=== PATIENT | female | born 1980 | race Caucasian/White ===

== ENCOUNTER 2017-01-02 00:59 | Outpatient (CLI) | payer BC, MEDICAID ==
[~2017-01-02 00:59] MED LIST: FERR27TA; PREN1TAB49; PRENAT PO
--- NOTE | 2017-01-02 02:19 | QN ---
Documentation Comment 38+wks For R/o labor +FM No VB No LOF occasional CTXs NST reassuring [place] No CTXs Pelvic Cx closed --->discharge If BPP 8 --->Instructions and precautions discussed with patient CHHAYA GABRIEL M.D. January 02, 2017 02:19
--- NOTE | 2017-01-02 04:15 | RADRPT ---
PROCEDURE: US OB biophysical profile. CLINICAL INDICATION: decreased movements TECHNIQUE: Multiple sonographic images of the pelvis were obtained. The images were reviewed on a PACS workstation. COMPARISON: No pertinent prior examinations were submitted for comparison. FINDINGS: There is a single viable intrauterine gestation. Cardiac activity is present with 130 beats per min [place]. There is a vertex presentation. The placenta is posterior and grade 2 appearance. There is a normal amount of amniotic fluid with an DIANA = 11 cm. Biophysical profile: movement 2/2 tone 2/2. breathing 2/2 DIANA 2/2 Total 03/23 IMPRESSION: Normal biophysical profile. RPTAT: HIKT . .Mc Love MD, Date Time Electronically viewed and signed by .Mc Love MD, on 01/02/2017 04:15 .T/
--- NOTE | 2017-01-02 05:42 | TRIAGE ---
OB Triage Datetime Report Generated by CPN: 01/02/2017 05:42 Datetime: 01/02/2017 03:49 Stage of : OB Triage Datetime: 01/02/2017 03:40 Stage of : OB Triage Datetime: 01/02/2017 03:20 Stage of : OB Triage Datetime: 01/02/2017 02:43 Stage of : OB Triage Datetime: 01/02/2017 02:10 Stage of : OB Triage Datetime: 01/02/2017 02:03 Stage of : OB Triage Datetime: 01/02/2017 02:00 Stage of : OB Triage Labor Evaluation Frequency: x3 Monitor Mode: External Duration (sec)2399: 100-120 Quality: Mild Resting Tone [place]: Relaxed Heart Rate FHR Baseline Rate: 130 Monitor Mode: External US Variability: Moderate 6-25 bpm Accelerations: 15X15 Decelerations: None Category: Category I Datetime: 01/02/2017 01:59 Stage of : OB Triage Datetime: 01/02/2017 01:51 Vaginal Exam Dilatation (cms): 0.0 Effacement (%): 0 Station: -3 Exam By: KIRILL Vaginal Bleeding: None Cervix, Consistency: Firm Cervix, Position: Posterior Datetime: 01/02/2017 01:39 Time of Arrival: 01/02/2017 00:55 EGA: 38.1 Arrived By: Wheelchair Arrived From: Home Chief Complaint: Contractions, vaginal pressure Movement: Present Contractions: Occasional Rupture of Membranes: Denies Vaginal Bleeding: None Vaginal Discharge: Denies Recent Sexual Intercouse: Denies Abdominal Trauma: Not Applicable Patient Complaints: Contractions; Other Time Provider Notified: 01/02/2017 01:59 Provider Notified: PARVEEN Initial Plan: VS, EFM, SVE Datetime: 01/02/2017 01:27 Assessment Type: Triage Maternal Assessment Level of Consciousness: Fully Conscious DTR's/Clonus: DTRs 2+; No Clonus Headache: Denies Blurred Vision: No Respiratory Effort: Unlabored Breath Sounds, Left: Clear and Equal Breath Sounds, Right: Clear and Equal Nausea/Vomiting: Denies RUQ Epigastric Pain: Denies Lower Extremities Edema: None Degree: None Upper Extremities Edema: None Degree: None Facial Edema: None Fall Risk Assessment History of Falling: (0) No Secondary Diagnosis: (15) Yes (Annotations: CSX1) Ambulatory Aid: (0) Bedrest/Nurse Assist IV Therapy: (0) No Gait: (10) Weak Mental Status: (0) Oriented to Own Ability Fall Score: 25 Fall Risk Score Definition: Low Risk: Please see standard fall prevention interventions Datetime: 01/02/2017 01:22 Membrane Status: Intact
== END 2017-01-02 04:25 | disposition home or self-care (01) ==
LOC: OBT 00:59 → L-D 01:00 → OBT 04:25
PROVIDERS: ATTEND Specialist
DX: O26.893 Other specified pregnancy related conditions, third trimester (principal); O09.523 Supervision of elderly multigravida, third trimester; Z3A.38 38 weeks gestation of pregnancy
CPT/HCPCS: 76818; G0463

== ENCOUNTER 2017-01-13 05:46 | Inpatient (IN) | payer BC ==
[~2017-01-13] VITALS: Ht 144.8 cm; Wt 72.8 kg
[2017-01-13 05:57] VITALS: Ht 144.8 cm; Wt 72.8 kg
[2017-01-13] MEDS ORDERED: LACTATED RINGER'S 1,000 ML IV SCH (05:57)
[2017-01-13] MEDS ORDERED: CARBOPROST 250 MCG INJ IM PRN ×2 (06:00→09:00)
[2017-01-13] MEDS ORDERED: METHYLERGONOVINE 0.2 MG INJ IM PRN ×2 (06:00→09:00)
[2017-01-13] MEDS ORDERED: CEFAZOLIN 2 GM/50 ML (PMX) 50 ML IV SCH (06:00)
[2017-01-13] MEDS ORDERED: OXYTOCIN 30 UNITS/LR 500 ML IV PRN ×2 (06:00→09:00)
[2017-01-13] MEDS ORDERED: CEFAZOLIN 2 GM/50 ML (PMX) 50 ML IVPB ONE (06:00)
[2017-01-13] MEDS ORDERED: MISOPROSTOL 200 MCG TAB PR PRN ×2 (06:00→09:00)
[2017-01-13 06:30] VITALS: BP 125/83; PULSE 82
[2017-01-13 06:34] LABS: ADD SCAN DIFF NO
[2017-01-13 06:37] LABS: BASOPHILS % 0.3 % (0.0-2.0); EOSINOPHILS # 0.1 10^3/ul (0.0-0.5); HEMATOCRIT 36.2 % (37.0-47.0); LYMPHOCYTES # 1.6 10^3/ul (0.8-2.9); LYMPHOCYTES % 26.2 % (15.0-51.0); MEAN CORPUSCULAR HEMOGLOBIN 27.7 pg (29.0-33.0); MEAN CORPUSCULAR HGB CONC 33.1 g/dl (32.0-37.0); MEAN CORPUSCULAR VOLUME 83.6 fl (82.0-101.0); MEAN PLATELET VOLUME 11.5 fl (7.4-10.4); MONOCYTE # 0.4 10^3/ul (0.3-0.9); NEUTROPHILS % 65.3 % (39.0-77.0); PLATELET COUNT 189 10^3/UL (140-415); RED BLOOD COUNT 4.33 10^6/ul (4.20-5.40); RED CELL DISTRIBUTION WIDTH 13.5 % (11.5-14.5); WHITE BLOOD COUNT 6.1 10^3/ul (4.8-10.8)
[2017-01-13 06:57] LABS: INR 0.89; PT RATIO 0.9
[2017-01-13 06:58] LABS: PARTIAL THROMBOPLASTIN TIME 25.7 Sec (25.0-35.0)
[2017-01-13] MEDS ORDERED: ONDANSETRON 4 MG INJ ONE (07:00)
[2017-01-13] MEDS ORDERED: morphine SULFATE/PF (10 MG/10 ML) INJ ONE (07:13)
[2017-01-13] MEDS ORDERED: FENTAnyl 50 MCG/ML VIAL ONE (07:14)
[2017-01-13] MEDS ORDERED: CITRIC ACID/SODIUM CITRATE 15 ML CUP PO ONE (07:30)
[2017-01-13] MEDS ORDERED: FAMOTIDINE 20 MG INJ IV ONE (07:30)
[2017-01-13] MEDS ORDERED: PHENYLephrine (100 MCG/ML) 5ML SYG ONE (07:50)
[2017-01-13] MEDS ORDERED: DEXAMETHASONE 4 MG/ML 1 ML INJ ONE (08:20)
--- NOTE | 2017-01-13 08:47 | PREOPHP ---
DATE OF ADMISSION: 01/13/2017 HISTORY OF PRESENT ILLNESS: This is a 36-year-old female, 4, para 3, with a previous maria elena an section whose EDC confirmed by early and serial ultrasounds done at the [facility] Group was 0 01/15/2017. She is admitted today for a repeat and a tubal ligation. These procedures wer e discussed in the office at great length. The alternatives the risks, the benefits from it, and th e possible complications were discussed. The failure rate of 1% for the tubal ligation was discusse d and understood by the patient. She was allowed to ask questions. All her questions were answered to her satisfaction, and she signed the appropriate surgical informed consent. The course has been totally uneventful. PAST MEDICAL HISTORY: The patient denies any medical problems including diabetes, hypertension, hea rt disease, kidney disease, liver disease, or neurological problems. ALLERGIES: SHE HAS NO KNOWN ALLERGIES. MEDICATIONS: Takes only vitamins and iron on a regular basis. FAMILY HISTORY: Positive for hypertension in the father and also in the mother who is also diabetic . REVIEW OF SYSTEMS: A 12-point review of systems is noncontributory. PHYSICAL EXAMINATION: GENERAL: Well-developed and nourished, in no distress, alert and oriented x3 with a height of 5 fee t 4 inches and weight of 158 pounds. VITAL SIGNS: Shows the temperature to be 98, blood pressure is 120/60, respirations 16 per minute, pulse of 72 per minute and regular. HEENT: Within normal limits. Pupils are PERRLA. NECK: Supple. Thyroid is not palpable. There is no lymphadenopathy. LUNGS: Clear to percussion and auscultation. HEART: Normal sinus rhythm without a murmur. BREASTS: Showed no masses or lumps. ABDOMEN: Soft. Uterus enlarged up to 36 cm above. The baby had longitudinal lie. heart is category 1. PELVIC: Normal external genitalia. Cervix is long and closed, membranes are intact. EXTREMITIES: Positive for bilateral varicose veins. There is no edema. NEUROLOGIC: Also normal. IMPRESSION: 1. A 39 weeks and 5 days' gestation. 2. Previous section. 3. Multiparity. 4. The patient desires sterilization. Dictated By: TOY GOSS/VANE Conf#: [id number] DID#: [id number] CC: ;*EndCC*
[2017-01-13] MEDS ORDERED: ZOLPIDEM 5 MG TAB PO PRN (09:00)
[2017-01-13] MEDS ORDERED: ONDANSETRON 4 MG INJ IV PRN (09:00)
[2017-01-13] MEDS ORDERED: HYDROmorphONE 1 MG/ML SYG IV PRN ×2 (09:00)
[2017-01-13] MEDS ORDERED: LANOLIN 7 GM TUBE TOP PRN (09:00)
[2017-01-13] MEDS ORDERED: NALOXONE (0.4 MG/ML) INJ IV PRN (09:00)
[2017-01-13] MEDS ORDERED: DIPHENHYDRAMINE 50 MG INJ IV PRN (09:00)
[2017-01-13] MEDS: OXYTOCIN 30 UNITS/LR 500 ML IV SCH ×3 (10:20→18:54)
[2017-01-13] MEDS: KETOROLAC 30 MG INJ IV PRN ×2 (10:27→20:58)
--- NOTE | 2017-01-13 11:25 | OPR ---
DATE OF OPERATION: 01/13/2017 PREOPERATIVE DIAGNOSES: 1. A 39 weeks and 5 days' gestation. 2. Previous . 3. Multiparity. POSTOPERATIVE DIAGNOSES: 1. A 39 weeks and 5 days' gestation. 2. Previous . 3. Multiparity. PROCEDURE PERFORMED: Repeat low segment transverse section and bilateral tubal ligation. SURGEON: Toy Galvna MD MANAGEMENT NURSE RN: Jose Blas MD ANESTHESIOLOGIST: Guillermo Alvarado MD ANESTHESIA: Spinal. ESTIMATED BLOOD LOSS: 600 mL. COMPLICATIONS: None. SPECIMENS: Bilateral portions of the fallopian tubes were sent to pathology. PROCEDURE AND FINDINGS: With the patient under spinal anesthesia, she was floyd on the table in the dorsal recumbent position. She had a Cotter catheter draining her bladder. Her abdomen, upper thigh s and perineum were prepped with ChloraPrep and after 3 minutes, she was dressed in the usual steril e fashion for this. A Pfannenstiel incision was done removing the old scar from the skin. This was deepened through all the layers of the abdominal wall with ease. Once in the abdomen, the uterine segment was found to be very thinned out. It was opened high transversely and a living male child w as delivered from LUAN position. There was thinly meconium stained amnionic fluid. The baby was suc tioned out before it could take a first breath. It was handed to the respiratory team client relation specialist who f ound him to have scores of 8 at first minute and 9 at five minutes. Sample cord blood was obt ained. The placenta was then removed. Uterine cavity was cleaned with a clean moist laparotomy pad . The uterine incision was closed in 2 layers of 0 PDS. Good hemostasis was obtained. The tubal ligation was carried out then starting on the left side, picking the tube in its midportio n with a Sherwood clamp. We tied it, base of the knuckle with 2 ties of #0 plain catgut. Then the p ortion of tube was cut. The same was done on the contralateral side. The pelvis was thoroughly mop ped with clean moist laparotomy pads. The incisions were checked for bleeders. There were none. Then, the abdomen was closed in layers. The first count of sponges was correct at closing the perit oneum. The fascia was closed with 2 convergent running sutures of 0 Vicryl. Finally, the edges of the skin were brought together with subcuticular 4-0 Monocryl. Sterile pressure dressing was applie d and the patient was taken to recovery room with all vital signs stable. EBL was 600 mL of blood. Needle, sponge and instrument counts at the end of the procedure were correct twice. Dictated By: TOY GALVAN MD CR/NTS Conf#: [id number] DID#: [id number] CC: JOSE BLAS MD;*EndCC*
[2017-01-13 11:50] VITALS: BP 147/93; PULSE 62; RESP 18
[2017-01-13] MEDS: SENNA/DOCUSATE NA (8.6MG/50MG) TAB PO SCH ×2 (11:55→20:58)
[2017-01-13] MEDS: CEFAZOLIN 2 GM/50 ML (PMX) 50 ML IVPB SCH ×2 (11:55→17:21)
[2017-01-13] MEDS: MULTIVIT/MIN/FOLATE/IRON/PREN TAB PO SCH (11:55)
[2017-01-13] MEDS: LACTATED RINGER'S 1,000 ML IV SCH ×3 (11:55→23:30)
[2017-01-13 12:20] VITALS: BP 138/90; PULSE 65; RESP 20
[2017-01-13] MEDS: IBUPROFEN 800 MG TAB PO SCH ×2 (14:00→22:00)
[2017-01-13 16:00] VITALS: BP 113/71; PULSE 65; RESP 18
[2017-01-13 19:35] VITALS: BP 103/68; PULSE 64; RESP 18
[2017-01-13] MEDS: GUAIFENESIN/DM 5ML CUP PO PRN (23:46)
[2017-01-14] VITALS: BP 103/55; PULSE 67; RESP 18
[2017-01-14] MEDS: CEFAZOLIN 2 GM/50 ML (PMX) 50 ML IVPB SCH ×2 (00:55→00:57)
[2017-01-14 04:20] VITALS: BP 114/65; PULSE 64; RESP 18
--- NOTE | 2017-01-14 07:44 | PN ---
Date/Time of Note Date/Time of Note DATE: 01/14/17 TIME: 07:42 OB Subjective Subjective Subjective Doing well Nursing.In good spirits. OB Objective Objective Objective Afebrile. Lochia normal Abdomen soft Labs pending. HEENT: WNL Heart: Rhythm Normal Lungs: Clear Abdomen: WNL Extremities: Normal Reflexes: Normal TOY RIZZO MD Jan 14, 2017 07:44
[2017-01-14 08:00] VITALS: BP 107/63; PULSE 69; RESP 16
[2017-01-14 08:21] LABS: ADD SCAN DIFF NO
[2017-01-14 08:28] LABS: BASOPHILS % 0.2 % (0.0-2.0); EOSINOPHILS # 0.1 10^3/ul (0.0-0.5); EOSINOPHILS % 1.4 % (0.0-7.0); HEMATOCRIT 30.6 % (37.0-47.0); HEMOGLOBIN 9.9 g/dl (12.0-16.0); LYMPHOCYTES # 1.7 10^3/ul (0.8-2.9); LYMPHOCYTES % 25.9 % (15.0-51.0); MEAN CORPUSCULAR HEMOGLOBIN 27.3 pg (29.0-33.0); MEAN CORPUSCULAR HGB CONC 32.4 g/dl (32.0-37.0); MEAN CORPUSCULAR VOLUME 84.3 fl (82.0-101.0); MEAN PLATELET VOLUME 10.6 fl (7.4-10.4); MONOCYTE # 0.4 10^3/ul (0.3-0.9); MONOCYTES % 5.5 % (0.0-11.0); NEUTROPHIL # 4.3 10^3/ul (1.6-7.5); NEUTROPHILS % 66.7 % (39.0-77.0); PLATELET COUNT 188 10^3/UL (140-415); RED BLOOD COUNT 3.63 10^6/ul (4.20-5.40); RED CELL DISTRIBUTION WIDTH 13.5 % (11.5-14.5); WHITE BLOOD COUNT 6.5 10^3/ul (4.8-10.8)
[2017-01-14] MEDS: OXYCODONE/ACETAMINOPHEN (5/325) TAB PO PRN ×4 (08:34→19:55)
[2017-01-14] MEDS: MULTIVIT/MIN/FOLATE/IRON/PREN TAB PO SCH (08:34)
[2017-01-14] MEDS: SENNA/DOCUSATE NA (8.6MG/50MG) TAB PO SCH ×2 (08:34→21:58)
[2017-01-14] MEDS: IBUPROFEN 800 MG TAB PO SCH ×3 (08:37→21:58)
[2017-01-14] MEDS: OXYTOCIN 30 UNITS/LR 500 ML IV SCH ×6 (08:37→22:30)
[2017-01-14] MEDS: LACTATED RINGER'S 1,000 ML IV SCH ×2 (08:48→14:58)
[2017-01-14 12:00] VITALS: BP 110/64; PULSE 72; RESP 18
[2017-01-14] MEDS: GUAIFENESIN/DM 5ML CUP PO PRN ×3 (12:13→21:58)
[2017-01-14 15:30] VITALS: BP 104/61; PULSE 71; RESP 16
[2017-01-14 20:00] VITALS: BP 118/71; PULSE 82; RESP 20
[2017-01-15] MEDS: LACTATED RINGER'S 1,000 ML IV SCH ×4 (00:48→23:17)
[2017-01-15] MEDS: OXYCODONE/ACETAMINOPHEN (5/325) TAB PO PRN ×4 (00:51→22:22)
[2017-01-15] MEDS: OXYTOCIN 30 UNITS/LR 500 ML IV SCH ×4 (02:30→22:30)
[2017-01-15 04:34] VITALS: BP 105/54; PULSE 72; RESP 20
[2017-01-15] MEDS: IBUPROFEN 800 MG TAB PO SCH ×3 (05:19→21:29)
--- NOTE | 2017-01-15 08:03 | PD.PPDC ---
LANDSCAPER Discharge Instruction Diagnosis Final Diagnosis: Term Preevious . 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
[2017-01-15 08:20] VITALS: BP 105/76; PULSE 69; RESP 14
[2017-01-15] MEDS: SENNA/DOCUSATE NA (8.6MG/50MG) TAB PO SCH ×2 (08:55→21:29)
[2017-01-15] MEDS: MULTIVIT/MIN/FOLATE/IRON/PREN TAB PO SCH (08:55)
--- NOTE | 2017-01-15 10:35 | DS ---
DATE OF ADMISSION: 01/13/2017 DATE OF DISCHARGE: 01/15/2017 FINAL DIAGNOSES: 1. Term intrauterine . 2. Previous . 3. Multiparity. SUMMARY: This is a 36-year-old female, 4, para 4 now, with a previous section, and also requesting sterilization on the basis of multiparity. She was admitted on 01/13/2017. She und erwent these procedures under spinal anesthesia. Postoperatively the patient has done well. She is ambulatory and eating a regular diet. She began to pass gas on the second postoperative day. She will be discharged on the third postoperative day. She was given written instructions for her care. She was given a prescription for Percocet, 60 tablets, to use 1 or 2 every 6 hours p.r.n. pain and Motrin 600 mg, 60 tablets, to use 1 every 6 to 8 hours p.r.n. pain. She is to have a regular diet and she is to make an appointment for a followup in the office in 1 week. She is discharged in good condition. Dictated By: TOY GOSS/VANE Conf#: [id number] DID#: [id number]
--- NOTE | 2017-01-15 10:47 | OPPN ---
Date/Time of Note Date/Time of Note DATE: 01/15/17 TIME: 10:47 Post-Anesthesia Notes Post-Anesthesia Note Last documented vital signs Vital Signs Date Time Temp Pulse Resp B/P Pulse Ox O2 Delivery O2 Flow Rate FiO2 01/15/17 08:20 98.0 69 14 105/76 Room Air Activity: WNL Respiratory function: WNL Cardiovascular function: WNL Mental status: Baseline Pain reasonably controlled: Yes Hydration appropriate: Yes Nausea/Vomiting absent: Yes ADELSO MOSS Jan 15, 2017 10:47
[2017-01-15] MEDS: GUAIFENESIN/DM 5ML CUP PO PRN (11:59)
[2017-01-15 16:35] VITALS: BP 134/84; PULSE 65; RESP 14
[2017-01-15 20:00] VITALS: BP 124/71; PULSE 81; RESP 19
[2017-01-16] MEDS: OXYCODONE/ACETAMINOPHEN (5/325) TAB PO PRN (02:33)
[2017-01-16 03:40] VITALS: BP 123/75; PULSE 69; RESP 19
[2017-01-16] MEDS: OXYTOCIN 30 UNITS/LR 500 ML IV SCH ×2 (03:48→06:30)
[2017-01-16] MEDS: IBUPROFEN 800 MG TAB PO SCH (05:41)
[2017-01-16 08:49] VITALS: BP_SYST 115; BP_SYST 129; BP_DIAS 71; BP_DIAS 86; PULSE 65; RESP 14
[2017-01-16] MEDS ORDERED: DIPHTH/TET/ACEL PERTUSS (ADULT) 0.5 ML VIAL IM* ONE (09:00)
[2017-01-16] MEDS: SENNA/DOCUSATE NA (8.6MG/50MG) TAB PO SCH (10:07)
[2017-01-16] MEDS: MULTIVIT/MIN/FOLATE/IRON/PREN TAB PO SCH (10:07)
== END 2017-01-16 16:51 | disposition home or self-care (01) | DRG 766 ==
LOC: L-D 05:46 → PP1 11:25
PROVIDERS: ADMIT Specialist; ATTEND Specialist
PROC: 0UL70ZZ Occlusion of Bilateral Fallopian Tubes, Open Approach (ICD-10-PCS; 2017-01-13)
PROC: 10D00Z1 Extraction of Products of Conception, Low, Open Approach (ICD-10-PCS; principal; 2017-01-13 07:30)
DX: O34.211 Maternal care for low transverse scar from previous cesarean delivery (principal); Z30.2 Encounter for sterilization; Z37.0 Single live birth; Z3A.39 39 weeks gestation of pregnancy
CPT/HCPCS: 85025; 85610; 85730; 86592; 86850; 86900; 86901; 87340; 88302; 90715; 99464; J0690; J1100; J1170; J1200; J1885; J2274; J2370; J2405; J2590; J3010; J7120